=== PATIENT | female | born 1965 | race Caucasian/White ===

== ENCOUNTER 2017-01-09 11:20 | Outpatient (CLI) | payer OTHER ==
--- NOTE | 2017-01-09 14:30 | Diagnostic Imaging Report ---
SUSAN BOSE [facility] [id number] [facility].[address] [id number] Report Submission Date: Jan 09, 2017 12:10:15 PM CDT Patient Study Name: XUAN VALLE Date: Jan 09, 2017 11:37:10 AM CDT Modality Type: US Gender: F Description: US ABD LIMITED : 65 Institution: [facility] Physician: SUSAN BOSE Ultrasound upper abdomen Clinical history: Right upper quadrant abdominal pain and nausea for 1 week. Technique: Real time sonography of the upper abdomen is performed in transverse and longitudinal views. Findings: The gallbladder is normally distended. There is no evident gallstone or gallbladder wall thickening and no pericholecystic fluid. The common bile duct measures 5 mm in diameter. There is no intrahepatic ductal dilatation. The main portal vein is mildly prominent measuring up to 1.27 cm in size. The visualized pancreas and right kidney are unremarkable. Impression: 1. Mild prominence of the main portal vein. 2. Otherwise negative study. Electronically signed on Jan 09, 2017 12:10:15 PM CDT by: Subhash GUPTA
== END 2017-01-09 11:21 ==
LOC: RAD 11:20
PROVIDERS: ATTEND Family Medicine
DX: R11.0 Nausea (principal); R10.11 Right upper quadrant pain
CPT/HCPCS: 76705